=== PATIENT | male | born 1940 | race Caucasian/White ===

== ENCOUNTER → 2019-06-27 09:19 | Outpatient (CLI) | payer MEDICARE, OTHER, SELFPAY ==
[2019-06-27 12:14] LABS: Absolute Lymphocyte Count 0.86 X10^3/uL (0.83-4.51); Absolute Neutrophil Count 1.9 X10^3/uL (2.0-7.7); Basophil# 0.03 X10^3/uL; Basophil% 0.9 % (0-1); Eosinophil# 0.09 X10^3/uL; Eosinophils% 2.8 % (0-5); Lymphocyte # 0.86 X10^3/ul (4.0); Lymphocyte % 26.8 % (19-41); Mean Corp Hgb Conc 34.1 g/dL (32-36); Mean Corpuscular Hgb 32.5 pg (27.0-32.0); Mean Corpuscular Volume 95.4 fL (80-94); Mean Platelet Vol. 8.8 fl (6.2-12.0); Monocyte# 0.36 X10^3/uL; Monocyte% 11.2 % (0-10); NRBC Flagged by Analyzer 0 % (0-5); Neutrophil # 1.86 X10^3/uL (2.7-7.7); Platelet Count 199 K/mm3 (150-450); RBC Distribution Width CV 12.6 % (11.6-14.6); RBC Distribution Width SD 44.5 fl (35.1-43.9); Red Blood Count 4.61 M/mm3 (4.6-6.2); White Blood Count 3.2 K/mm3 (4.4-11.0)
[2019-06-27 12:24] LABS: ALB/GLOB Ratio 1.2 RATIO (0.9-2.4); AST(SGOT) 19 U/L (15-37); Alanine Aminotransfer ALT/SGPT 29 U/L (16-61); Albumin, Serum 3.7 g/dL (3.2-5.0); Alkaline Phosphatase 43 U/L (45-117); Anion Gap 3 (5-15); BUN 20 mg/dL (7-18); BUN/Creat Ratio 23.5 RATIO (10-20); Calcium,Total 8.3 mg/dL (8.5-10.1); Chloride 106 mmol/L (98-107); Creatinine, Serum 0.85 mg/dL (0.70-1.30); EST Glomerular Filtration Rate 93 mL/min (>60); Est Glom Filt Rate - Afr Amer 112 mL/min (>60); Globulin 3.2 g/dL (2.2-4.2); Glucose 89 mg/dL (74-106); PSA,Total- Diagnostic < 0.01 ng/mL (0.0-4.0); Potassium 3.8 mmol/L (3.5-5.1); Protein, Total 6.9 g/dL (6.4-8.2); Sodium Level 139 mmol/L (136-145); T4 Free Direct 0.87 ng/dL (0.76-1.46); Thyroid Stim Hormone (TSH) 2.24 uIU/mL (0.358-3.74)
== END ==
PROVIDERS: Family Provider Family Medicine; PCP Family Medicine; Referring Provider Family Medicine; Visit Provider Family Medicine
DX: E78.5 Hyperlipidemia, unspecified (principal); C61 Malignant neoplasm of prostate; I10 Essential (primary) hypertension
CPT/HCPCS: 36415; 80053; 84153; 84439; 84443; 85025

== ENCOUNTER 2019-07-22 09:22 | Day surgery (SDC) | payer MEDICARE, OTHER, SELFPAY ==
[2019-07-08 11:07] VITALS: BMI 23.1
--- NOTE | 2019-07-08 12:52 | HP_ITS ---
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 Is patient in pain?: No Allergies No Known Allergies Allergy (Verified 07/08/19 11:08) Medications chondroitin sulfate A sodium 400 mg capsule 400 mg PO BID 07/08/19 [History] glucosamine HCl 750 mg tablet 750 mg PO BID 07/08/19 [History] glucosamine SBs-saa-kgllsgkctkb 500 mg-300 mg-400 mg tablet 1 tab PO BID tab 07/08/19 [History] pyridoxine (vitamin B6) 100 mg tablet 100 mg PO DAILY 07/08/19 [History Confirmed 07/08/19] turmeric root extract 500 mg capsule 500 mg PO BID 07/08/19 [History Confirmed 07/08/19] vitamin R40-bbxzw acid 2.5 mg-0.8 mg oral sublingual tablet tab PO 07/08/19 [History] PFSH Medical History Hyperlipidemia (Acute) History of trigger finger (Acute) Hx of malignant neoplasm of prostate (Acute) Blood in stool (Acute) Hypertension (Chronic) Gout (Acute) Arthritis (Acute) Surgical History Hx of colonoscopy (Acute) History of bunionectomy of left great toe (Acute) Hx of melanoma excision (Acute) Hx of prostatectomy (Acute) Hx of simple renal cyst (Acute) Family History Mother CVA (cerebral vascular accident) Dementia Father COPD (chronic obstructive pulmonary disease) HPI HPI HPI: MAGDA BARRAZA, is a 78 M who presents to the office today for HPI HPI Surgical H&P: Yes HPI: MAGDA BARRAZA, is a 78 M who presents to the office today for Rectal bleeding. The patient reports he has been having bright red blood per rectum. He reports that he is not having any abdominal pain. He says his last colonoscopy was 8 years ago and was normal. He has no family history of colon cancer. He is not on any blood thinners. ROS General General: No weight change or fatigue Musc Musculoskeletal: Yes arthritis and gout Cardio Cardiovascular: Yes high blood pressure; no murmur, pacemaker, heart disease, atrial fibrillation, heart attack, heart stent, palpitations, shortness of breat with exertion or chest pain Psych Psychiatric: No depression or anxiety Resp Respiratory: No shortness of breath, No sleep apnea, No cough, No COPD, No asthma, No emphysema, No wheezing Gastro Gastrointestinal: No abdominal pain, No nausea or vomiting, No diarrhea, No constipation, Yes blood in stool, No acid reflux, No hemorrhoids, No ulcers, No gallbladder problem, No black,tarry stools Sampson Hematologic: No blood thinners Exam Const General: cooperative Orientation: alert, oriented x3 Resp Effort & Inspection: normal respiratory effort Auscultation: clear to auscultation bilaterally Cardio Rate: regular rate Rhythm: regular rhythm Heart Sounds: no murmurs GI Inspection: non-distended Palpation: soft, nontender Assessment & Plan Problems 1. Blood in stool K92.1 Plan Patient is having bright red blood in his stool. He is not having any abdominal pain. His last colonoscopy was 8 years ago and was normal. I recommend colonoscopy to check for sources of bleeding. I explained endoscopy in detail to the patient. I explained the risks including but not limited to stroke or heart attack with anesthesia, perforation of the GI tract, bleeding, infection. I explained that any of these could necessitate further emergency surgery. The patient understands and all questions were answered sufficiently. The patient wishes to proceed with procedure. Mikey Griffin MD Pager: [facility] [address] [place] [address], [address] [place] [address] Office: Orders Orders: Colonoscopy Today K62.5 Coding Level of Care Code Off vis,new,level 3 Diagnoses Blood in stool K92.1 07/08/19 1252 <Electronically signed by Mikey benson MD> Date _ Mikey Griffin MD I have re-examined the patient. There are no clinical changes since date of exam.
[2019-07-22] VITALS (7 sets, daily range): BP systolic 80–147; BP diastolic 57–95; PULSE 61–68; RESP 16; TEMP 16.1–36.9; O2SAT 95–99; BMI 23.5
[2019-07-22] MEDS: Lactated Ringers 1,000 ML 100 ML IV (09:57)
--- NOTE | 2019-07-22 10:53 | OP.COLON_ITS ---
Patient Name: Redd Astudillo Procedure Date: 07/22/2019 10:23 AM Date of : 1940 Age: 78 Procedure: Colonoscopy Indications: Rectal bleeding Providers: Mikey Griffin MD Referring MD: Chepe Olson Medicines: Monitored Anesthesia Care Patient Profile: This is a 78 year old male. Refer to note in patient chart for documentation of history and physical. Last Colonoscopy: several years ago. Complications: No immediate complications. Procedure: Pre-Anesthesia Assessment: - Prior to the procedure, a History and Physical was performed, and patient medications and allergies were reviewed. The patient's tolerance of previous anesthesia was also reviewed. The risks and benefits of the procedure and the sedation options and risks were discussed with the patient. All questions were answered, and informed consent was obtained. Prior Anticoagulants: The patient has taken no previous anticoagulant or antiplatelet agents. After reviewing the risks and benefits, the patient was deemed in satisfactory condition to undergo the procedure. After I obtained informed consent, the scope was passed under direct vision. Throughout the procedure, the patient's blood pressure, pulse, and oxygen saturations were monitored continuously. The colonoscope was introduced through the anus and advanced to the cecum, identified by appendiceal orifice and ileocecal valve. The colonoscopy was performed without difficulty. The patient tolerated the procedure well. The quality of the bowel preparation was good. Scope In: 10:34:31 AM Scope Withdrawal Time 0 hours 6 minutes 4 seconds Scope Out: 10:48:01 AM Total Procedure Duration Time 0 hours 13 minutes 30 seconds Findings: The entire examined colon appeared normal on direct and retroflexion views. Impression: - The entire examined colon is normal on direct and retroflexion views. - No specimens collected. Recommendation: - Discharge patient to home. - Resume previous diet. - Continue present medications. - Repeat colonoscopy is not recommended due to current age (66 years or older) for screening purposes. Procedure Code(s): --- Professional --- 88414, Colonoscopy, flexible; diagnostic, including collection of specimen(s) by brushing or washing, when performed (separate procedure) Diagnosis Code(s): --- Professional --- K62.5, Hemorrhage of anus and rectum CPT copyright 2017 [employer]. All rights reserved. The codes documented in this report are preliminary and upon political aide review may be revised to meet current compliance requirements. Mikey Griffin MD 07/22/2019 10:52:10 AM This report has been signed electronically. Number of Addenda: 0 Note Initiated On: 07/22/2019 10:23 AM
--- NOTE | 2019-07-22 10:53 | OP.CCLET_ITS ---
07/22/2019 Chepe Olson Re : Colonoscopy procedure for Redd Astudillo Dear [place] This procedure was performed on Monday, July 22, 2019. My impressions and recommendations are as follows: Impressions : - The entire examined colon is normal on direct and retroflexion views. - No specimens collected. Recommendations : - Discharge patient to home. - Resume previous diet. - Continue present medications. - Repeat colonoscopy is not recommended due to current age (66 years or older) for screening purposes. My findings are described in the full procedure note, which is enclosed. If I can be of further assistance, please feel free to contact me at Doctor phone number(s): , Work: . Sincerely, Mikey Griffin MD 07/22/2019 10:52:10 AM This report has been signed electronically.
== END 2019-07-22 11:36 | disposition home or self-care (01) ==
LOC: EN 09:23 → AC 09:28
PROVIDERS: Family Provider Family Medicine; PCP Family Medicine; Referring Provider Family Medicine; Visit Provider Surgery
PROC: 0DJD8ZZ Inspection of Lower Intestinal Tract, Via Natural or Artificial Opening Endoscopic (ICD-10-PCS; CPT 45378; principal; 2019-07-22 10:45)
DX: K62.5 Hemorrhage of anus and rectum (principal); I10 Essential (primary) hypertension; E78.5 Hyperlipidemia, unspecified; Z87.891 Personal history of nicotine dependence
CPT/HCPCS: G0121; J7120

== ENCOUNTER 2020-02-21 10:03 | Emergency (ER) | payer MEDICARE, OTHER, SELFPAY ==
[2019-07-22 09:51] VITALS: BMI 23.5
[2020-02-21 10:04] VITALS: BP 182/93; PULSE 67; RESP 20; TEMP 36.2; O2SAT 97; BMI 23.6
--- NOTE | 2020-02-21 10:13 | RAD_ITS ---
STUDY: X-RAY CHEST REASON FOR EXAM: Male, 79 years old. NEAR SYNCOPE AND DIZZINESS JUST PRIOR TO ARRIVAL TECHNIQUE: Single AP portable view of the chest. COMPARISON: None. FINDINGS: EKG electrodes are seen. Hyperinflation. There is no demonstrated pleural abnormality. There is borderline cardiomegaly. Normal mediastinum and maribell. There is prominence of the pulmonary hilar arteries without peripheral pulmonary vascular congestion, suggesting pulmonary hypertension. There is atherosclerotic tortuosity of the aortic arch and descending thoracic aorta. There are diffuse degenerative changes of the visualized thoracic spine. There is degenerative osteoarthritis of the bilateral shoulders. There is no demonstrated abnormality of the visualized soft tissue structures of the upper abdomen. RAD/Chest 1 View (Portable) IMPRESSION: Hyperinflation. Electronically Signed: Peter Carrasquillo, at 10:53 EDT , Service support ,
--- NOTE | 2020-02-21 10:13 | EKG12_ITS ---
Test Reason : NEAR SYNCOPE Blood Pressure : / mmHG Vent. Rate : 062 BPM Atrial Rate : 062 BPM P-R Int : 194 ms QRS Dur : 098 ms QT Int : 420 ms P-R-T Axes : -14 009 046 degrees QTc Int : 426 ms Normal sinus rhythm Nonspecific ST abnormality Abnormal ECG Confirmed by MARY OSBORN ([id number]), associate entertainment editor KANWAL WARE ([id number]) on 02/23/2020 9:02:55 AM Referred By: CORI Confirmed By:MARY OSBORN
[2020-02-21 10:18] VITALS: O2SAT 97
--- NOTE | 2020-02-21 10:20 | ED.VIS.GEN ---
History of Present Illness Chief Complaint: Dizziness Informant: Patient, Family Narrative: Patient is a 79-year-old male with a past medical history of hypertension who presents to the ED for a near syncopal episode. He states that he was out in the yard talking to other people. He started to feel lightheaded like he could pass out. He ended up blowing himself to the ground. He did have a awake overnight monitor that was placed on him which showed a blood pressure of 167/110. His heart rate was in the 60s. Satting 94% at that time. He states that the whole episode lasted maybe 5 minutes. He denies ever having this happen before in the past. During the episode he denies any chest pain, shortness of breath or heart palpitations. He states he is not almost back at baseline now. Denies any headache or vision changes. No neck pain or stiffness. Denies any recent illness including any nausea/vomiting or diarrhea. Denies any urinary symptoms. No cough, cold, congestion. No abdominal pain. He has a distant smoking history. No history of heart attacks, strokes or DVT/PE. No swelling or leg pain in his legs. Past Medical History - Allergies and Home Meds Allergies/Adverse Reactions: Allergies No Known Allergies Allergy (Verified 02/21/20 10:16) Primary Care Physician: Chepe Olson MD [Primary Care Provider] - As soon as possible Prior records reviewed: Yes Past Medical History: - - Hypertension Smoking Status: Former smoker Review of Systems All systems negative except as indicated General: Denies: Chills, Fever, Sweats Eyes: Denies: Visual changes - bilaterally, Diplopia ENT: Denies: Rhinorrhea, Sore throat Cardiovascular: Denies: Chest pain, Palpitations Respiratory: Denies: Dyspnea, Cough, Dyspnea on exertion Gastrointestinal: Denies: Abdominal pain, Nausea, Vomiting, Diarrhea, Melena, Hematochezia Genitourinary: Denies: Dysuria, Hematuria, Frequency Musculoskeletal: Denies: Back pain, Extremity Pain Skin: Denies: Rash, Wounds Neurological: Reports: - - Lightheadedness. Denies: Headache, Weakness, Numbness Physical Exam Vital Signs/Narrative: Vital Signs Temp Pulse Resp BP Pulse Ox 02/21/20 10:18 97 02/21/20 10:04 97.1 F L 67 20 H 182/93 H 97 Inital Vital Signs reviewed: Yes General: Well nourished, Well developed, No Acute Distress Head: Normocephalic, Atraumatic Eyes: Perrl, EOMI ENT: Moist mucous membranes, No rhinorrhea Neck: Supple, Nontender Cardiovascular: Regular rate, Regular rhythm, No murmurs, - - 2+ radial pulse bilateral Respiratory: No distress, CTA bilaterally, Chest nontender Abdomen: Soft, Nontender, Nondistended, Normal bowel sounds Back: Nontender, Normal Inspection Extremities: Nontender, No edema. Negative for: Calf Tenderness Skin: Normal color, No rash Neurological: Alert, Oriented x3, Cranial nerves II-XII grossly intact, Normal Strength, Normal Sensation Psychological: Normal affect, Normal Mood Diagnostic/Tx/Re-eval - EKG Initial EKG Interpretation: - - Rate of 62 bpm and normal sinus rhythm. Normal intervals. Normal axis. No ST elevations or depressions appreciated. No T wave abnormalities. - Medical Decision Making Patient presents to the ED for near syncopal episode. The symptoms lasted for approximately 5 minutes. He feels much better at this time. Upon arrival he is mildly hypertensive otherwise normal vital signs. Has no complaints at this time. Basic lab work, EKG and chest x-ray being obtained along with orthostatic vital signs. Patient's lab work did not reveal any significant acute abnormality. Initial troponin within normal limits. Has been stable throughout ED stay without any repeat symptoms. I offered hospitalization I do not have a reason for patient's near syncopal episode. He is requesting outpatient work-up for this. I did contact his PCP and updated them on patient's symptoms and findings. They are going to see him in the office. Patient is to call to schedule this appointment. I feel patient would benefit from ultrasound/stress test. I did discuss strict return precautions for which to return to the ED including any repeat symptoms, chest pain, shortness of breath or heart palpitations. He understands and is agreeable this plan. Will discharge home in stable condition. ED Disposition - Plan for ED Patient: Disposition: Home or Assisted Living Diagnosis: Near syncope Instructions: ED Fainting Uncertain Cause Referrals: Chepe Olson MD [Primary Care Provider] - As soon as possible
[2020-02-21 10:31] LABS: Absolute Lymphocyte Count 1.04 X10^3/uL (0.83-4.51); Basophil# 0.03 X10^3/uL; Basophil% 0.9 % (0-1); Eosinophil# 0.07 X10^3/uL; Hematocrit 43.9 % (40-54); Hemoglobin 15.2 g/dL (13.0-16.5); Lymphocyte # 1.04 X10^3/ul (4.0); Mean Corp Hgb Conc 34.6 g/dL (32-36); Mean Corpuscular Volume 95.4 fL (80-94); Mean Platelet Vol. 8.2 fl (6.2-12.0); Monocyte# 0.36 X10^3/uL; Monocyte% 10.4 % (0-10); NRBC Flagged by Analyzer 0 % (0-5); Neutrophil # 1.96 X10^3/uL (2.7-7.7); Neutrophil % 56.4 % (47-70); Platelet Count 195 K/mm3 (150-450); RBC Distribution Width CV 12.4 % (11.6-14.6); RBC Distribution Width SD 43.8 fl (35.1-43.9); White Blood Count 3.5 K/mm3 (4.4-11.0)
[2020-02-21 11:02] LABS: Anion Gap 4 (5-15); BUN 15 mg/dL (7-18); BUN/Creat Ratio 16.2 RATIO (10-20); Calcium,Total 8.8 mg/dL (8.5-10.1); Chloride 103 mmol/L (98-107); Creatinine, Serum 0.93 mg/dL (0.70-1.30); EST Glomerular Filtration Rate 83 mL/min (>60); Est Glom Filt Rate - Afr Amer 101 mL/min (>60); Estimated Creatinine Clearance 62.31 ml/min; Glucose 101 mg/dL (74-106); Magnesium 2.5 mg/dL (1.6-2.6); Potassium 3.8 mmol/L (3.5-5.1); Sodium Level 137 mmol/L (136-145)
[2020-02-21 11:06] VITALS: BP 141/104; BP 142/84; BP 151/97; PULSE 59; PULSE 62; PULSE 63
== END 2020-02-21 11:47 | disposition home or self-care (01) ==
PROVIDERS: Emergency Provider Emergency Medicine; PCP Family Medicine
DX: R55 Syncope and collapse (principal); Z87.891 Personal history of nicotine dependence; I10 Essential (primary) hypertension; Z79.899 Other long term (current) drug therapy
CPT/HCPCS: 71045; 80048; 83735; 84484; 85025; 93005; 99284; A4216

== ENCOUNTER → 2020-03-20 11:16 | Outpatient (CLI) | payer MEDICARE, OTHER, SELFPAY ==
[2020-02-21 10:04] VITALS: BMI 23.6
--- NOTE | 2020-03-20 11:19 | RAD_ITS ---
HISTORY: low back pain, hx of prostate ca COMPARISON: None FINDINGS: # of images incl. paperwork: 5 XR Spine Lumbar Min 4 Views: Lumbar vertebral bodies are normal in height. Lumbar disc spaces are well maintained. No acute lumbar spine fracture or subluxation. Dextroscoliosis within the lumbar spine. Levoscoliosis at the level thoracolumbar junction. Multilevel degenerative disc disease with loss of disc height, endplate sclerosis, and calcification of disc spaces. Bone mineral density in the pelvis may be diminished. RAD/L/S Spine Min 4 Views IMPRESSION: No acute lumbar spine fracture or subluxation. at 0423 Reported and signed by: Jake Ricks MD Electronically Signed: Jake Ricks MD at 4:22 EDT Tel , Service support ,
== END ==
PROVIDERS: PCP Family Medicine; Referring Provider Family Medicine; Visit Provider Family Medicine
DX: M54.5 Low back pain (principal)
CPT/HCPCS: 72110

== ENCOUNTER → 2020-07-31 10:29 | Outpatient (CLI) | payer MEDICARE, OTHER, SELFPAY ==
[2020-07-31 12:21] LABS: Absolute Neutrophil Count 2.3 X10^3/uL (2.0-7.7); Basophil# 0.03 X10^3/uL; Basophil% 0.8 % (0-1); Eosinophil# 0.07 X10^3/uL; Eosinophils% 1.9 % (0-5); Hematocrit 43.5 % (40-54); Lymphocyte % 24.7 % (19-41); Mean Corp Hgb Conc 34.5 g/dL (32-36); Mean Corpuscular Hgb 32.3 pg (27.0-32.0); Mean Corpuscular Volume 93.5 fL (80-94); Mean Platelet Vol. 8.7 fl (6.2-12.0); Monocyte% 8.2 % (0-10); NRBC Flagged by Analyzer 0 % (0-5); Neutrophil # 2.33 X10^3/uL (2.7-7.7); Neutrophil % 64.1 % (47-70); Platelet Count 202 K/mm3 (150-450); RBC Distribution Width CV 12.2 % (11.6-14.6); RBC Distribution Width SD 42.3 fl (35.1-43.9); Red Blood Count 4.65 M/mm3 (4.6-6.2); White Blood Count 3.6 K/mm3 (4.4-11.0)
[2020-07-31 12:44] LABS: ALB/GLOB Ratio 1.2 RATIO (0.9-2.4); AST(SGOT) 15 U/L (15-37); Alanine Aminotransfer ALT/SGPT 25 U/L (16-61); Albumin, Serum 3.9 g/dL (3.2-5.0); Alkaline Phosphatase 50 U/L (45-117); Anion Gap 7 (5-15); BUN 13 mg/dL (7-18); BUN/Creat Ratio 14.3 RATIO (10-20); Chloride 104 mmol/L (98-107); Cholesterol 193 mg/dL (200); Creatinine, Serum 0.91 mg/dL (0.70-1.30); EST Glomerular Filtration Rate 85 mL/min (>60); Est Glom Filt Rate - Afr Amer 103 mL/min (>60); Globulin 3.2 g/dL (2.2-4.2); Glucose 86 mg/dL (74-106); High Density Lipoprotein 77 mg/dL; PSA,Total- Diagnostic < 0.01 ng/mL (0.0-4.0); Potassium 4.2 mmol/L (3.5-5.1); Protein, Total 7.1 g/dL (6.4-8.2); Sodium Level 138 mmol/L (136-145); Triglycerides 49 mg/dL; Very Low Density Lipoprotein 10 mg/dL (5-40)
== END ==
PROVIDERS: PCP Family Medicine; Visit Provider Family Medicine
DX: I10 Essential (primary) hypertension (principal); E78.5 Hyperlipidemia, unspecified; Z85.46 Personal history of malignant neoplasm of prostate
CPT/HCPCS: 36415; 80053; 80061; 84153; 85025

== ENCOUNTER → 2022-01-13 | Outpatient (CLI) | payer MEDICARE, OTHER, SELFPAY ==
--- NOTE | 2022-01-13 08:30 | CDU_ITS ---
Reason For Study: Vertigo Rt. Velocities/BP Lt. Velocities/BP Prox CCA 106/16 cm/sec. Prox CCA 103/23 cm/sec. Mid CCA 63/9 cm/sec. Mid CCA 79/23 cm/sec. Dist CCA 78/11 cm/sec. Dist CCA 62/17 cm/sec. Prox ICA 53/16 cm/sec. Prox ICA 46/14 cm/sec. Mid ICA 54/19 cm/sec. Mid ICA 69/22 cm/sec. Dist ICA 90/26 cm/sec. Dist ICA 88/32 cm/sec. Rt. ICA/CCA = 1.4. Lt. ICA/CCA = 1.1. Prox ECA 68/7 cm/sec. Prox ECA 71/14 cm/sec. Rt. Vert. 58/14 cm/sec. Lt. Vert. 53/20 cm/sec. Right Extracranial There is intimal thickening but no significant atherosclerotic plaque noted in the right common carotid artery. There is intimal thickening but no significant atherosclerotic plaque noted in the right internal carotid artery. There is intimal thickening but no significant atherosclerotic plaque noted in the right external carotid artery. Antegrade flow is noted in the right vertebral artery. Left Extracranial There is heterogeneous, irregular atherosclerotic plaque noted in the left common carotid artery. There is intimal thickening but no significant atherosclerotic plaque noted in the left internal carotid artery. There is no significant atherosclerotic plaque noted in the left external carotid artery. Antegrade flow is noted in the left vertebral artery. Procedure Carotid Duplex [id number]. This is a Carotid Duplex examination using B-mode, color flow and specral Doppler. Exam performed in department. VL/Carotid Duplex Ultrasound Interpretation Summary Mild (<50%) stenosis right extracranial internal carotid. Mild (<50%) stenosis left extracranial internal carotid. Patent and antegrade vertebrals bilaterally. Ordering Physician: Chepe Olson Referring Physician: Chepe Olson Performed By: Nicolasa Wilson, AYDEE, RVT
== END | disposition home or self-care (01) ==
LOC: CVS 08:29
PROVIDERS: PCP Family Medicine; Referring Provider Family Medicine; Visit Provider Family Medicine
DX: I65.23 Occlusion and stenosis of bilateral carotid arteries (principal)
CPT/HCPCS: 93880

== ENCOUNTER → 2022-02-26 | Outpatient (CLI) | payer MEDICARE, OTHER, SELFPAY ==
--- NOTE | 2022-02-26 13:15 | RAD_ITS ---
STUDY: X-RAY - THORACIC SPINE REASON FOR EXAM: Male, 81 years old. PAIN TECHNIQUE: 3 view(s) of the thoracic spine were obtained. COMPARISON: None. FINDINGS: Normal kyphosis of the thoracic spine. Mild dextroscoliosis of the lower thoracic spine. There is multilevel endplate spondylosis of the thoracic vertebrae. There is multilevel disc space narrowing of the thoracic spine. The soft tissue structures are unremarkable. RAD/Thoracic Spine 3 Views IMPRESSION: Mild dextroscoliosis with degenerative disc disease. Electronically Signed: Reese Lindsey MD at 14:20 EDT ,
== END | disposition home or self-care (01) ==
PROVIDERS: PCP Family Medicine; Referring Provider Nurse Practitioner Family; Visit Provider Nurse Practitioner Family
DX: M54.6 Pain in thoracic spine (principal)
CPT/HCPCS: 72072

== ENCOUNTER 2022-03-08 13:57 | Emergency (ER) | payer MEDICARE, OTHER, SELFPAY ==
[2022-03-08 13:58] VITALS: BP 153/101; PULSE 79; RESP 16; TEMP 36.8; O2SAT 98; BMI 22.1
--- NOTE | 2022-03-08 14:11 | EKG12_ITS ---
Test Reason : SOB Blood Pressure : / mmHG Vent. Rate : 079 BPM Atrial Rate : 079 BPM P-R Int : 172 ms QRS Dur : 084 ms QT Int : 380 ms P-R-T Axes : 060 -16 037 degrees QTc Int : 435 ms Normal sinus rhythm Nonspecific ST and T wave abnormality Abnormal ECG Confirmed by ANA BLAKELY, FRANCOIS ([id number]), editor publications LIBRADO LAI ([id number]) on 03/10/2022 11:15:07 AM Referred By: JARRED Confirmed By:FRANCOIS PEREZ MD
--- NOTE | 2022-03-08 14:12 | RAD_ITS ---
HISTORY: SOB. TECHNIQUE: XR Chest 1 View. COMPARISON: 02/21/2020. FINDINGS: CARDIOMEDIASTINAL BORDERS: Cardiac silhouette within normal limits in size. Mediastinal contour unremarkable with calcification of the aorta. LUNGS: Hyperinflation suggesting COPD. Chronic mild left basilar scarring. PLEURA: No pleural effusion or pneumothorax seen. OSSEOUS STRUCTURES: Degenerative change with scoliosis. RAD/Chest 1 View (Portable) IMPRESSION: No acute cardiopulmonary process identified. Electronically Signed: Maude Cuevas MD at 14:22 EDT ,
[2022-03-08 14:39] LABS: Absolute Lymphocyte Count 0.64 X10^3/uL (0.83-4.51); Absolute Neutrophil Count 3.7 X10^3/uL (2.0-7.7); Basophil# 0.01 X10^3/uL; Basophil% 0.2 % (0-1); Hematocrit 40.5 % (40-54); Hemoglobin 14.2 g/dL (13.0-16.5); Lymphocyte # 0.64 X10^3/ul (0.83-4.51); Lymphocyte % 12.9 % (19-41); Mean Corp Hgb Conc 35.1 g/dL (32-36); Mean Corpuscular Hgb 33.2 pg (27.0-32.0); Mean Corpuscular Volume 94.6 fL (80-94); Mean Platelet Vol. 8.3 fl (6.2-12.0); Monocyte# 0.59 X10^3/uL; Monocyte% 11.8 % (0-10); NRBC Flagged by Analyzer 0 % (0-5); Neutrophil # 3.73 X10^3/uL (2.7-7.7); Neutrophil % 74.9 % (47-70); Platelet Count 146 K/mm3 (150-450); RBC Distribution Width CV 12.8 % (11.6-14.6); RBC Distribution Width SD 44.2 fl (35.1-43.9); Red Blood Count 4.28 M/mm3 (4.6-6.2)
[2022-03-08 14:57] LABS: Anion Gap 6 (5-15); BUN 14 mg/dL (7-18); BUN/Creat Ratio 16.5 RATIO (10-20); Calcium,Total 9.4 mg/dL (8.5-10.1); Chloride 103 mmol/L (98-107); Creatinine, Serum 0.85 mg/dL (0.70-1.30); EST Glomerular Filtration Rate 92 mL/min (>60); Est Glom Filt Rate - Afr Amer 111 mL/min (>60); Estimated Creatinine Clearance 63.82 ml/min; Glucose 139 mg/dL (74-106); Potassium 3.5 mmol/L (3.5-5.1); Sodium Level 136 mmol/L (136-145)
[2022-03-08 15:52] VITALS: BP 153/101; PULSE 79; RESP 16; TEMP 36.8; O2SAT 98
[2022-03-08 15:57] VITALS: RESP 16; O2SAT 98
--- NOTE | 2022-03-08 15:57 | ED.VIS.DYS ---
HPI History of Present Illness Chief Complaint: Shortness of Breath Informant: patient Narrative Narrative: COVID infection diagnosed at home today. Symptomatic 2 days sore throat with occasional wheezing. No tobacco history. No history of asthma or COPD. COVID vaccinated with booster. Return from a cruise. No history of COVID infections in the past. Pulse ox 93% at home. History of hypertension on medications. Prior similar symptoms: No PFSH PFSH Medical History Arthritis Blood in stool Gout History of trigger finger Hx of malignant neoplasm of prostate Hyperlipidemia Hypertension Home Medications chondroitin sulfate A sodium 400 mg capsule 400 mg PO BID 07/08/19 [History Last Taken Unknown] glucosamine HCl 750 mg tablet 750 mg PO BID 07/08/19 [History Last Taken Unknown] pyridoxine (vitamin B6) 100 mg tablet 100 mg PO DAILY 07/08/19 [History Last Taken Unknown] turmeric root extract 500 mg capsule 500 mg PO BID 07/08/19 [History Last Taken Unknown] vitamin U07-ettvv acid 2.5 mg-0.8 mg oral sublingual tablet 1 tab PO DAILY 07/08/19 [History Last Taken Unknown] amlodipine 2.5 mg tablet 2.5 mg PO DAILY 07/18/19 [History Last Taken 07/22/19] nirmatrelvir 300 mg (150 mg x2)-ritonavir 100 mg tablet,dose pack(EUA) (Paxlovid) See Rx Instructions PO .COMPLEX #30 tabs 03/08/22 [Rx Last Taken Unknown] Allergy/AdvReac Type Severity Reaction Status Date / Time No Known Allergies Allergy Verified 03/08/22 13:58 Family History Mother CVA (cerebral vascular accident) Dementia Father COPD (chronic obstructive pulmonary disease) Surgical History History of bunionectomy of left great toe Hx of colonoscopy Hx of melanoma excision Hx of prostatectomy Hx of simple renal cyst Social History Smoking Status: Former smoker quit date: 07/07/69 second hand exposure: No alcohol intake: current alcohol intake frequency: 0-2 drinks per day Alcohol type: wine substance use type: does not use caffeine: Yes what type of physical activity do you participate in: walking and aerobics frequency: 3-4 times per week ROS ROS ED Constitutional Constitutional ED: Denies chills, fever(s) or sweats Eyes Eyes: Denies change in vision ENT ENT ED: Reports sore throat; Denies dysphagia Cardiovascular Cardiovascular: Denies chest pain, leg edema, palpitations or racing heartbeat Respiratory/Chest Respiratory/Chest: Reports dyspnea; Denies cough or dyspnea on exertion Gastrointestinal Gastrointestinal: Denies abdominal pain, diarrhea, nausea or vomiting Genitourinary Genitourinary ED: Denies dysuria, hematuria or urinary frequency Musculoskeletal Musculoskeletal: Denies back pain, extremity pain or neck pain Integumentary Denies rash or wounds Neurologic Neurologic: Denies headache(s), paresthesias or weakness EXAM Physical Exam Const Vital Signs: 03/08/22 13:58 03/08/22 15:52 03/08/22 15:57 Temperature 98.2 F 98.2 F Temperature Source Temporal Temporal Pulse Rate 79 79 Respiratory Rate 16 16 Respiratory Effort Respiratory Depth Respiratory Pattern Blood Pressure 153/101 H 153/101 H Blood Pressure Mean 118 118 Pulse Ox 98 98 Oxygen Delivery Method Room Air Room Air Room Air Oxygen Flow Rate (L/min) 98 03/08/22 15:57 03/08/22 16:18 03/08/22 16:19 Temperature Temperature Source Pulse Rate Respiratory Rate 16 18 Respiratory Effort Normal Respiratory Depth Normal Respiratory Pattern Normal Blood Pressure Blood Pressure Mean Pulse Ox 98 Oxygen Delivery Method Room Air Room Air Oxygen Flow Rate (L/min) Positive well nourished and well developed General Appearance ED: well developed and NAD HEENT Reports moist mucous membranes normocephalic and atraumatic Eyes PERRL, EOMs intact bilaterally and conjunctivae normal General Eye ED: Yes normal appearance of both eyes Neck no lymphadenopathy and supple General: Negative for tenderness Chest Wall Chest: Negative for tenderness Resp normal respiratory effort and normal air movement Effort and Inspection: symmetric chest movement; Negative for respiratory distress Cardio regular rate, regular rhythm and no murmurs Peripheral Pulses: pulses 2+ throughout GI normal to inspection, nondistended, normoactive bowel sounds and non-tender Palpation: Negative for guarding or rebound tenderness present Back/Spine no CVA tenderness and no thoracic nor lumbar tenderness Extremity normal to inspection General Extremety ED: Negative for edema or tenderness General Extremity: Negative for edema Neuro oriented x3 and no sensory deficits noted Sensorium / Orientation: awake and alert Skin no rashes or lesions noted and no wounds MDM MDM MDM Narrative Medical decision making narrative: Patient coinfection at home day 2. History of hypertension. EKG sinus rhythm chest x-ray 1 view reviewed myself read by radiology shows no acute process. Basic labs were normal. He is day 2 of symptoms within the window for treatment. Discussed options he would like treatment. Paxlovid with meds to bed written. He has a pulse oximeter at home. Return precautions. All questions were answered. Lab Data Attestation: I reviewed the patient's lab results. Labs: Laboratory Results - last 24 hr 03/08/22 03/08/22 14:30 14:30 WBC 5.0 RBC 4.28 L Hgb 14.2 Hct 40.5 MCV 94.6 H MCH 33.2 H MCHC 35.1 RDW Std Deviation 44.2 H RDW Coeff of Danilo 12.8 Plt Count 146 L MPV 8.3 Immature Gran % (Auto) 0.200 Neut % (Auto) 74.9 H Lymph % (Auto) 12.9 L Whiteside % (Auto) 11.8 H Eos % (Auto) 0.0 Baso % (Auto) 0.2 Absolute Neuts (auto) 3.7 Absolute Lymphs (auto) 0.64 L Nucleated RBC % 0 Sodium 136 Potassium 3.5 Chloride 103 Carbon Dioxide 27.0 Anion Gap 6 BUN 14 Creatinine 0.85 Estim Creat Clear Calc 63.82 Est GFR (MDRD) Af Amer 111 Est GFR (MDRD) Non-Af 92 BUN/Creatinine Ratio 16.5 Glucose 139 H Calcium 9.4 Radiography Diagnostic Testing: Clinical Impression(s) from Imaging Studies Chest X-Ray 03/08/22 14:12 IMPRESSION: No acute cardiopulmonary process identified. Electronically Signed: Maude Cuevas MD at 14:22 EDT , EKG Initial EKG: Attestation: I personally reviewed and interpreted this EKG as follows: Comments: Sinus rate of 79, no ST or T wave changes. Discharge Plan Triage Chief Complaint: Shortness of Breath ED Provider: Ha Farr Dx/Rx/DC Orders Clinical Impression: COVID-19 virus infection, Sore throat, Wheezing Instructions: Coronavirus Disease 2019 (COVID-19): Caring for Yourself or Others Prescriptions: New Paxlovid (EUA) 300 mg (150 mg x 2)-100 mg tablets,dose pack See Rx Instructions .ROUTE .COMPLEX Qty: 30 0RF Rx Instructions: take TWO 150 mg tablets of nirmatrelvir with ONE 100 mg tablet of ritonavir twice daily for 5 days No Action turmeric root extract 500 mg capsule 500 mg PO BID vitamin [id number] acid 2.5 mg-0.8 mg oral sublingual tablet 2.5-0.8 mg tablet, sublingual 1 tab PO DAILY pyridoxine (vitamin B6) 100 mg tablet 100 mg PO DAILY glucosamine HCl 750 mg tablet 750 mg tablet 750 mg PO BID Rx Instructions: administer with meals chondroitin sulfate A sodium 400 mg capsule 400 mg capsule 400 mg PO BID amlodipine 2.5 MG tablet 2.5 mg PO DAILY Primary Care Provider: Chepe Olson Referrals: Chepe Olson MD [Primary Care Provider] - 1 Week Activity Restrictions/Additional Instructions: Take medication as prescribed. Monitor symptoms and pulse oximeter. Return if pulse ox below 88 with worsening dyspnea. Disposition Disposition: Home, Self Care Discharge Date/Time: 03/08/22 16:23
[2022-03-08 16:18] VITALS: RESP 18
[2022-03-08 16:19] VITALS: O2SAT 99
== END 2022-03-08 16:23 | disposition home or self-care (01) ==
PROVIDERS: Emergency Provider Emergency Medicine; PCP Family Medicine; Visit Provider Emergency Medicine
DX: U07.1 COVID-19 (principal); E78.5 Hyperlipidemia, unspecified; I10 Essential (primary) hypertension; R06.2 Wheezing; M19.90 Unspecified osteoarthritis, unspecified site; Z87.891 Personal history of nicotine dependence; Z79.899 Other long term (current) drug therapy
CPT/HCPCS: 71045; 80048; 85025; 93005; 94760; 99283; A4216

== ENCOUNTER → 2022-05-26 | Outpatient (CLI) | payer MEDICARE, OTHER, SELFPAY ==
[2022-05-26 15:27] LABS: PSA,Total- Diagnostic < 0.01 ng/mL (0.0-4.0)
== END | disposition home or self-care (01) ==
LOC: LAB 14:02
PROVIDERS: PCP Family Medicine; Referring Provider Registered Nurse; Visit Provider Registered Nurse
DX: C61 Malignant neoplasm of prostate (principal)
CPT/HCPCS: 36415; 84153

== ENCOUNTER → 2022-07-16 | Outpatient (CLI) | payer MEDICARE, OTHER, SELFPAY ==
--- NOTE | 2022-07-16 14:53 | CT_ITS ---
EXAM: CT ABDOMEN AND PELVIS WITH INTRAVENOUS CONTRAST CLINICAL INDICATION: HYDRONEPHROSIS? POSSIBLY FOUND ON MRI OF BACK TECHNIQUE: Helically acquired images were obtained of the abdomen and pelvis with intravenous contrast. This CT exam was performed using one or more of the following dose reduction techniques: automated exposure control, adjustment of the mA and/or kV according to patient size, and/or use of iterative reconstruction technique. This report was created using [employer] report generation technology. CONTRAST: IV 100mL Isovue-300 COMPARISON: None. FINDINGS: LOWER THORAX: Unremarkable. Lung bases are clear. No cardiomegaly. No significant pericardial effusion. ABDOMEN: LIVER: There is a simple cyst in the inferior right lobe of the liver. GALLBLADDER AND BILE DUCTS: Unremarkable. No calcified gallstones. No gallbladder distention or wall edema. No intra- or extrahepatic biliary ductal dilation. PANCREAS: Unremarkable. No focal cystic or solid mass. SPLEEN: Unremarkable. Normal size without focal cystic or solid mass. ADRENALS: Unremarkable. No nodules. KIDNEYS AND URETERS: Delayed images show normal tracer contrast from both kidneys. There are bilateral peripelvic cysts in the kidneys. No hydronephrosis. STOMACH AND BOWEL: Unremarkable. No stomach or bowel distention. No focal inflammatory change. PELVIS: APPENDIX: No evidence of acute appendicitis. BLADDER: Unremarkable. REPRODUCTIVE: Unremarkable as visualized. No mass. ABDOMEN and PELVIS: INTRAPERITONEAL SPACE: Unremarkable. No ascites or other fluid collection. No free air. BONES/JOINTS: Unremarkable. No suspicious lytic or blastic abnormality. SOFT TISSUES: Unremarkable. No discrete abdominal or pelvic wall hernia. VASCULATURE: Unremarkable. Abdominal aorta is non-dilated. LYMPH NODES: Unremarkable. No enlarged lymph nodes. CT/Abdomen/Pelvis W IV Cont ONLY IMPRESSION: Peripelvic cysts in the kidneys. There is no hydronephrosis. There are no acute abnormalities. Electronically Signed: Crispin Cuevas MD at 18:18 EST ,
[2022-07-16 15:20] LABS: CREATININE FINGERSTICK < 0.9 mg/dL (0.70-1.30); EGFR FINGERSTICK > 60.0000 mL/min (>60)
== END | disposition home or self-care (01) ==
LOC: CT 14:52
PROVIDERS: PCP Family Medicine; Referring Provider Urology; Visit Provider Urology
DX: N28.1 Cyst of kidney, acquired (principal)
CPT/HCPCS: 74177; Q9967

== ENCOUNTER → 2022-10-20 | Outpatient (CLI) | payer MEDICARE, OTHER, SELFPAY ==
[2022-10-20 12:09] LABS: Absolute Lymphocyte Count 0.77 X10^3/uL (0.83-4.51); Absolute Neutrophil Count 2.1 X10^3/uL (2.0-7.7); Basophil# 0.02 X10^3/uL; Basophil% 0.6 % (0-1); Eosinophil# 0.07 X10^3/uL; Eosinophils% 2.1 % (0-5); Hematocrit 42.8 % (40-54); Hemoglobin 14.5 g/dL (13.0-16.5); Lymphocyte # 0.77 X10^3/ul (0.83-4.51); Lymphocyte % 23.5 % (19-41); Mean Corp Hgb Conc 33.9 g/dL (32-36); Mean Corpuscular Hgb 32.3 pg (27.0-32.0); Mean Corpuscular Volume 95.3 fL (80-94); Mean Platelet Vol. 8.6 fl (6.2-12.0); Monocyte% 9.1 % (0-10); NRBC Flagged by Analyzer 0 % (0-5); Neutrophil # 2.11 X10^3/uL (2.7-7.7); Neutrophil % 64.4 % (47-70); Platelet Count 216 K/mm3 (150-450); RBC Distribution Width CV 12.6 % (11.6-14.6); RBC Distribution Width SD 44.6 fl (35.1-43.9); Red Blood Count 4.49 M/mm3 (4.6-6.2); White Blood Count 3.3 K/mm3 (4.4-11.0)
[2022-10-20 12:41] LABS: ALB/GLOB Ratio 1.2 RATIO (0.9-2.4); AST(SGOT) 17 U/L (15-37); Alanine Aminotransfer ALT/SGPT 23 U/L (16-61); Albumin, Serum 3.9 g/dL (3.2-5.0); Alkaline Phosphatase 56 U/L (45-117); Anion Gap 2 (5-15); BUN 18 mg/dL (7-18); BUN/Creat Ratio 21.8 RATIO (10-20); Calcium,Total 9.2 mg/dL (8.5-10.1); Chloride 107 mmol/L (98-107); Cholesterol 194 mg/dL (200); Creatinine, Serum 0.82 mg/dL (0.70-1.30); EST Glomerular Filtration Rate 95 mL/min (>60); Est Glom Filt Rate - Afr Amer 115 mL/min (>60); Globulin 3.2 g/dL (2.2-4.2); Glucose 90 mg/dL (74-106); High Density Lipoprotein 79 mg/dL; PSA,Total - Annual Screen < 0.01 ng/mL (0.00-4.00); Potassium 3.9 mmol/L (3.5-5.1); Protein, Total 7.1 g/dL (6.4-8.2); Sodium Level 137 mmol/L (136-145); Triglycerides 59 mg/dL; Very Low Density Lipoprotein 12 mg/dL (5-40)
== END | disposition home or self-care (01) ==
LOC: BFHLAB 09:07
PROVIDERS: PCP Nurse Practitioner Family; Referring Provider Nurse Practitioner Family; Visit Provider Nurse Practitioner Family
DX: Z00.00 Encounter for general adult medical examination without abnormal findings (principal); E78.5 Hyperlipidemia, unspecified; I10 Essential (primary) hypertension; Z85.46 Personal history of malignant neoplasm of prostate; Z12.5 Encounter for screening for malignant neoplasm of prostate
CPT/HCPCS: 36415; 80053; 80061; 84153; 85025; G0103

== ENCOUNTER → 2023-01-05 | Outpatient (CLI) | payer MEDICARE, OTHER, SELFPAY ==
[2023-01-05 18:07] LABS: Absolute Lymphocyte Count 0.93 X10^3/uL (0.83-4.51); Absolute Neutrophil Count 2.5 X10^3/uL (2.0-7.7); Basophil# 0.02 X10^3/uL; Basophil% 0.5 % (0-1); Eosinophil# 0.06 X10^3/uL; Eosinophils% 1.6 % (0-5); Hematocrit 38.5 % (40-54); Hemoglobin 13.4 g/dL (13.0-16.5); Lymphocyte # 0.93 X10^3/ul (0.83-4.51); Lymphocyte % 24.2 % (19-41); Mean Corp Hgb Conc 34.8 g/dL (32-36); Mean Corpuscular Hgb 33.2 pg (27.0-32.0); Mean Corpuscular Volume 95.3 fL (80-94); Monocyte# 0.36 X10^3/uL; Monocyte% 9.4 % (0-10); NRBC Flagged by Analyzer 0 % (0-5); Neutrophil # 2.46 X10^3/uL (2.7-7.7); Platelet Count 190 K/mm3 (150-450); RBC Distribution Width CV 12.8 % (11.6-14.6); RBC Distribution Width SD 44.9 fl (35.1-43.9); Red Blood Count 4.04 M/mm3 (4.6-6.2); White Blood Count 3.8 K/mm3 (4.4-11.0)
[2023-01-05 18:26] LABS: Vitamin B12 1593 pg/mL (211-911); Vitamin D,25 Hydroxy 59.9 ng/mL
[2023-01-05 18:35] LABS: ALB/GLOB Ratio 1.2 RATIO (0.9-2.4); AST(SGOT) 13 U/L (15-37); Alanine Aminotransfer ALT/SGPT 21 U/L (16-61); Albumin, Serum 3.6 g/dL (3.2-5.0); Alkaline Phosphatase 56 U/L (45-117); Anion Gap 4 (5-15); BUN 23 mg/dL (7-18); BUN/Creat Ratio 25.7 RATIO (10-20); Calcium,Total 9.1 mg/dL (8.5-10.1); Chloride 107 mmol/L (98-107); EST Glomerular Filtration Rate 86 mL/min (>60); Est Glom Filt Rate - Afr Amer 105 mL/min (>60); Ferritin 121 ng/mL (26-388); Globulin 3.1 g/dL (2.2-4.2); Glucose 97 mg/dL (74-106); Iron 85 ug/dL (65-175); Potassium 4.1 mmol/L (3.5-5.1); Protein, Total 6.7 g/dL (6.4-8.2); Sodium Level 137 mmol/L (136-145); Thyroid Stim Hormone (TSH) 2.08 uIU/mL (0.358-3.74)
== END | disposition home or self-care (01) ==
PROVIDERS: PCP Nurse Practitioner Family; Referring Provider Nurse Practitioner Family; Visit Provider Nurse Practitioner Family
DX: R53.83 Other fatigue (principal); D64.9 Anemia, unspecified; E55.9 Vitamin D deficiency, unspecified
CPT/HCPCS: 36415; 80053; 82306; 82607; 82728; 83540; 84443; 85025

== ENCOUNTER → 2023-01-09 | Outpatient (CLI) | payer MEDICARE, OTHER, SELFPAY ==
--- NOTE | 2023-01-09 14:38 | MRI_ITS ---
EXAM: MR HEAD WITHOUT AND WITH INTRAVENOUS CONTRAST CLINICAL INDICATION: Left hand tremor. Shuffling gait. TECHNIQUE: Multiplanar and multisequence MR images of the brain were obtained without and with intravenous contrast. CONTRAST: 13 mL of IV Clariscan. COMPARISON: No relevant prior studies available. FINDINGS: BRAIN AND EXTRA-AXIAL SPACES: Right anterior periventricular white matter T2 FLAIR hyperintensity foci extending to the right frontal operculum is chronic white matter ischemic changes. No mass effects and no midline shift. Following IV contrast administration, there are no abnormally enhancing lesions intra-axially and extra-axially. No intra- or extra-axial hemorrhage. Posterior fossa structures are unremarkable. No hydrocephalus. No diffusion restriction to suspect acute or subacute ischemic infarct. Normal ventricles and cisterns. SELLA: Unremarkable. Normal sella turcica, pituitary gland, infundibular stalk, optic chiasm and hypothalamus. AUDITORY SYSTEM: Unremarkable. The internal auditory canals are patent. BONES/JOINTS: Unremarkable. No discrete lytic or blastic abnormalities. SINUSES: Mucosal thickening with retention cyst in the small floor of the small left sphenoid sinus. Normal remaining paranasal sinuses. MASTOID AIR CELLS: Unremarkable as visualized. Clear. ORBITS: Unremarkable as visualized. Both globes, extraocular muscles, optic nerves and retrobulbar fat appear unremarkable. VASCULATURE: Unremarkable as visualized. Normal flow voids in the major intracranial circulation. MRI/Brain W/WO Contrast IMPRESSION: 1. No MRI evidence of acute or subacute ischemic infarct, intracranial mass or acute intracranial abnormality. 2. No abnormal enhancing lesions intra-axially and extra-axially. 3. Right anterior periventricular white matter chronic white matter ischemic change. 4. Mild mucosal thickening with small retention cyst in the floor the left sphenoid sinus. Electronically Signed: Oziel Duarte MD at 14:58 EDT ,
== END | disposition home or self-care (01) ==
LOC: MRI 14:36
PROVIDERS: PCP Nurse Practitioner Family; Referring Provider Nurse Practitioner Family; Visit Provider Nurse Practitioner Family
DX: G25.0 Essential tremor (principal); R26.89 Other abnormalities of gait and mobility; R41.842 Visuospatial deficit
CPT/HCPCS: 70553; A9575

== ENCOUNTER 2023-11-30 09:00 | Outpatient (RCR) | payer MEDICARE, OTHER, SELFPAY ==
--- NOTE | 2023-09-28 10:48 | HP.PTREVAL ---
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 Please see the progress note below for an update on the physical therapy plan of care! Subjective Subjective: Pt feels the same and that he struggles with his balance. He fell in class the other day. He has had positional vertigo and Dr Obregon has corrected it. Now he gets dizzy rolling to his R side and he avoids rolling to the R side. Objective Objective/Function: R Hallpike negative for nystagmus but increase dizziness that lasted 20 seconds. Treated with R Eply and had dizziness when sitting up from Eply Repeated R Hallpike and had no room spinning dizziness Worked with the pt on changing direction fast and he would get his feet tangled and slower to react to being off balance and slower reaction to changing directionh Plan Plan Plan: Work on changing direction and picking up his feet, work on balance when looking up or changing head position quickly 2X/ week for 6 weeks for postural exercises, gait training with head turns, stepping over objects, curb steps, dual tasking, sit to stand mechanics with HEP Balance/Gait/Functional tests Balance/Special Test Scores Functional Gait Assessment Score: 22 % Disability: 26.6700 Lower Extremity Functional Score: 43 Goals Goals Goal 1:: I HEP Goal Time Frame: 4-6 Weeks Goal 2:: Be able to step over objects without hesitancy or LOB Goal Time Frame: 4-6 Weeks Goal Progress: Progressing Goal 3:: Be able to go up and down a curb step without LOB or hesitancy Goal Time Frame: 4-6 Weeks Goal Progress: Progressing Goal 4:: Be able to demonstrate good posture on command with gait and standing posture Goal Time Frame: 4-6 Weeks Goal Progress: Goal Met Anticipated Interventions Anticipated Interventions Patient/Client Instruction: Educate patient on: Condition and Plan of Care For the Purpose of:: To improve nutrient delivery to tissue, To improve muscle performance and motor function, To improve ability to perform ADL's, To increase tolerance to activity/condition/position, To improve performance and independence with ADL's, To decrease level of supervision to perform tasks, To improve ability of physical actions for home/community/work/leisure, To improve gait and locomotor functions, To improve endurance, To improve balance and To improve safety with gait Therapeutic Exercise to Include: Strength training, Endurance training, Balance training, Coordination, Body mechanics, Postural training, Flexibilty training, Gait and locomotor training, Neuromotor development, Passive ROM, Active ROM and Dynamic Lumbar Stabilization For the Purpose of:: To decrease pain, To increase ROM, To improve nutrient delivery to tissue, To improve muscle performance and motor function, To improve ability to perform ADL's, To increase tolerance to activity/condition/position, To improve performance and independence with ADL's, To decrease level of supervision to perform tasks, To improve ability of physical actions for home/community/work/leisure, To improve gait and locomotor functions, To improve health of tissue, To decrease soft tissue restriction, To increase flexibility/ROM, To improve endurance, To improve balance and To improve safety with gait Functional Training to Include: Gait training For the Purpose of:: To improve gait and locomotor functions and To improve safety with gait Re-Evaluation Ending Re-evaluation ending: Please do not hesitate to contact me at [phone] by phone or if you have questions or concerns regarding this new plan of care! Sincerely, Gretchen Russo, MPT
--- NOTE | 2023-11-02 15:17 | HP.SP.EVAL ---
Visit History Visit Info Date of Eval: 10/28/23 Visit: 1 Insurance Date Limit: 06/28/24 [employer] Supervisor: JACQUES History Attending Doctor: ARMAND Referring Doctor: ARMAND Reason for Referral: [facility]. RX HERE Previous speech therapy: No Other Relevant Medical History/Diagnoses/Surgery: Prostate Cancer Medications related to this diagnosis: Carbo-levodopa, amoiphin Smoking Status: Former smoker Diagnosis Diagnosis: Parkinson, voice disorder, Mild recall deficits. Pain Is pain an issue with your current prescribed condition?: No Personal Preferred language: Slovak Patient Allergies Allergies Allergies: Allergies No Known Allergies Allergy (Verified 03/08/22 13:58) Subjective Oral Motor Subjective Patient Reports: Drooling Comments Comments: Patient states he notices that he drools sometimes. He stated he did when he was at the store and sometimes drools at home. CLQT CLQT CLQT Administered: Yes CLQT: Cognitive Linguistic Quick Test (CLQT) is a criterion - referenced assessment designed for adults between the ages of 18 and 89 with known or suspected neurological dysfuntions. The CLQT is to assess strength and weaknesses in five cognitive domains. Severity ratings are within normal limits, mild, moderate, severe deficits. The subtests are as follows: Date: 10/28/23 Attention Attention: WNL Memory Memory: WNL Executive Functions Executive Functions: WNL Language Language: WNL Visuospatial Skills Visuospatial Skills: WNL Composite Severity Rating Composite Severity Rating: WNL Clock Drawing Severity Rating Clock Drawing Severity Rating: WNL CLQT Comments Comments: -: Redd had WNL skills on testing. He reported memory deficits in functional daily living. Recently he paid a tax bill for over 7,000 and had no recall of paying the bill. He checked his bank account and found it was taken out. He was able to look to who it was to then problem solved that he paid the taxes. Objective Voice Date of Diagnosis Previous Speech Therapy (If yes, describe): No Medications Familiar with on/off effect: Yes Implantation Deep brain implantation (If yes, answer next question): No Objective data Objective Data: Objective data: Sound pressure level (SPL acoustic correlation of vocal loudness) was measured with a sound level meter at a distance of 40 cm from the patient's mouth. Average conversational loudness is 70-80 dB and sustained phonation duration is 15 to 20 seconds for a typical adult. Sustained Phonation Intensity (dB SPL): 64 Sustained Phonatin duration (seconds): 18 Vocal Intensity at Conversational Level (dB SPL): 59 Reference: Neuro-QoL instrument Radiation Oncology Patient Plan Plan Plan: A vocal intensity based intervention approach applying LSVT principles to improve speech intelligibility will be used. Given the progressive nature of primary diagnosis, It is not anticipated for a full return to pre-morbid level of functioning, though will expect to achieve gains in speech intelligibility as well as maintain current level of functioning. To achieve this, the patient will require continued skilled speech-language intervention not only through the current intervention cycle but will likely benefit from repeated intervention cycles to maintain communication efficiency. Recommendations Treatment Warranted: Yes Treatment Warranted: Voice Progress Prognosis: Good Frequency Frequency: 1x/Week Duration: 6 Months Patient/Family Goal Patient/Family Goal: Getting rid of the raspy voice. Goals that are Established Determination:: Goals will be added/modified as deemed necessary and appropriate. Therapy will be discontinued when results of re-evaluation indicate therapy is no longer needed or lack of progress has been documented. Goal #1-5 Goal #1: Redd will independently recall and use memory strategies for daily living tasks on 4/5 trials. Goal #2: Patient will increase vocal loudness to reach a target sound pressure level of 75 dB ABRASIVE SAWYER with 1 cue during sustained phonation, which will help increase vocal respiratory support for functional communication. Goal #3: Patient will increase vocal loudness to reach a target sound pressure level of 65 dB ABRASIVE SAWYER with 1 cue during reading at the word and sentence level, which will help increase vocal respiratory support for functional communication. Goal #4: Patient will increase vocal loudness to reach a target sound pressure level of 65 dB ABRASIVE SAWYER with 1 cue during conversation for functional communication. Education Patient has Indicated that the Following Identified Educational Needs: None The Patient has indicated that they have no educational or learning abilities that may effect their care.: Yes Patient Instruction Patient Education: Diagnosis, Treatment Plan and Goals Person Taught: Patient Teaching Method: Discussion and Demonstration Response to teaching: Return demonstration and Verbalize understanding
--- NOTE | 2023-11-24 11:48 | HP.PTDCSUM ---
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 Discharge Date: 11/24/23 Please see the following information for a summary of their discharge status. Subjective Subjective: Pt still feels unstable when he drinks his wine and then just the faster movements. He has found a non alcoholic beer and will start drinking that. He will look into his med and see if there is a side effect. Pain R LB and buttock: Pain Intensity (Out of 10): 3 Overall Improvement % Improvement: 30 Objective Objective/Function: Pt goes up and down the steps recip with 2 hand rails Pt is able to step up and over a curb step (6 inch) Pt is able to step over a 6 inch block with no hesitation multiple times Goals Goal 1:: I HEP Goal Progress: Goal Met Goal 2:: Be able to step over objects without hesitancy or LOB Goal Progress: Goal Met Goal 3:: Be able to go up and down a curb step without LOB or hesitancy Goal Progress: Goal Met Goal 4:: Be able to demonstrate good posture on command with gait and standing posture Goal Progress: Goal Met Plan Plan: DC PT to Indep workout and PD classes D/C Information Discharge Comments: DC PT d/c sentence: If there are questions or concerns regarding this patient's physical therapy, please feel free to call me at [phone]. Thank you for the referral of this patient. Sincerely, Gretchen Russo, MPT Balance/Gait/Functional tests Balance/Special Test Scores Functional Gait Assessment Score: 22 % Disability: 26.6700 Lower Extremity Functional Score: 56 Improvement % Improvement: 30
--- NOTE | 2023-11-30 10:28 | HP.SP.DC ---
ST Discharge Summary Discharged: Discharge: Redd Astudlilo is discharged from [facility] speech therapy as of November 30, 2023 as services are no longer warranted. His goals targeted increased volume for functional communication as well as use of recall strategies. He is independently able to use at least 2-3 recall strategies. His volume in conversation ranges from 59dB to 63dB ( goal was 65dB).He stated that this is his normal volume as he is a quiet person. Recently he was with family and no one asked him to repeat anything. Patient is discharged as he and therapist decided that he is able to independently monitor his volume and that currently he is functional with his volume. Please see daily notes and reports for further information. Thank you for allowing me to participate in the care of this patient.
== END 2023-11-30 13:52 | disposition home or self-care (01) ==
LOC: SP 09:00
PROVIDERS: PCP Nurse Practitioner Family; Referring Provider Nurse Practitioner Family; Visit Provider Nurse Practitioner Family
DX: G20.A1 Parkinson's disease without dyskinesia, without mention of fluctuations (principal); R49.0 Dysphonia
CPT/HCPCS: 92507; 92523; 97110; 97112; 97161; 97530

== ENCOUNTER → 2023-12-02 | Outpatient (CLI) | payer MEDICARE, OTHER, SELFPAY ==
[2023-12-02 12:46] LABS: Absolute Lymphocyte Count 0.81 X10^3/uL (0.83-4.51); Absolute Neutrophil Count 2.4 X10^3/uL (2.0-7.7); Basophil# 0.03 X10^3/uL; Basophil% 0.8 % (0-1); Eosinophils% 2.7 % (0-5); Hematocrit 41.2 % (40-54); Hemoglobin 13.9 g/dL (13.0-16.5); Lymphocyte # 0.81 X10^3/ul (0.83-4.51); Lymphocyte % 21.5 % (19-41); Mean Corp Hgb Conc 33.7 g/dL (32-36); Mean Corpuscular Hgb 32.6 pg (27.0-32.0); Mean Corpuscular Volume 96.5 fL (80-94); Mean Platelet Vol. 8.6 fl (6.2-12.0); Monocyte# 0.38 X10^3/uL; Monocyte% 10.1 % (0-10); NRBC Flagged by Analyzer 0 % (0-5); Neutrophil # 2.44 X10^3/uL (2.7-7.7); Neutrophil % 64.6 % (47-70); Platelet Count 182 K/mm3 (150-450); RBC Distribution Width CV 12.5 % (11.6-14.6); RBC Distribution Width SD 44.1 fl (35.1-43.9); Red Blood Count 4.27 M/mm3 (4.6-6.2); White Blood Count 3.8 K/mm3 (4.4-11.0)
[2023-12-02 12:52] LABS: ALB/GLOB Ratio 1.1 RATIO (0.9-2.4); AST(SGOT) 16 U/L (15-37); Alanine Aminotransfer ALT/SGPT 11 U/L (16-61); Albumin, Serum 3.7 g/dL (3.2-5.0); Alkaline Phosphatase 47 U/L (45-117); Anion Gap 5 (5-15); BUN 19 mg/dL (7-18); BUN/Creat Ratio 21.8 RATIO (10-20); Calcium,Total 9.1 mg/dL (8.5-10.1); Chloride 108 mmol/L (98-107); Cholesterol 192 mg/dL (200); Creatinine, Serum 0.87 mg/dL (0.70-1.30); EST Glomerular Filtration Rate 89 mL/min (>60); Est Glom Filt Rate - Afr Amer 107 mL/min (>60); Globulin 3.3 g/dL (2.2-4.2); Glucose 90 mg/dL (74-106); High Density Lipoprotein 71 mg/dL; Iron 85 ug/dL (65-175); PSA,Total - Annual Screen < 0.01 ng/mL (0.00-4.00); Potassium 3.7 mmol/L (3.5-5.1); Sodium Level 138 mmol/L (136-145); Triglycerides 77 mg/dL; Very Low Density Lipoprotein 15 mg/dL (5-40)
== END | disposition home or self-care (01) ==
LOC: BFHLAB 08:55
PROVIDERS: PCP Nurse Practitioner Family; Referring Provider Nurse Practitioner Family; Visit Provider Nurse Practitioner Family
DX: I10 Essential (primary) hypertension (principal); E78.5 Hyperlipidemia, unspecified; D64.9 Anemia, unspecified; Z12.5 Encounter for screening for malignant neoplasm of prostate
CPT/HCPCS: 36415; 80053; 80061; 83540; 84153; 85025; G0103

== ENCOUNTER 2024-06-09 09:00 | Outpatient (RCR) | payer MEDICARE, OTHER, SELFPAY ==
--- NOTE | 2024-05-18 12:46 | HP.OTEVAL ---
Patient's Visit Information Visit Information Visit Information: MAGDA BARRAZA is a 83 year old M, referred to Occupational Therapy by VERO Felder, with a diagnosis of left trigger thumb. Date of Evaluation: 05/18/24 Occupational Therapist: Ivonne Marti, DOMINGUEZ/Huyen, CHT Subjective Subjective: This 83 year old male was seen for OT eval with dx of left trigger thumb. Pt states he has had triggering in left thumb for about 6 months or longer. Pt states he is using a soft thumb splint at [facility] but he can still notice it triggers. pt is right handed pt has dx of PD and works with the [employer] the [employer]. pt states he also does a balancing workout with is . pt active and feels the trigger thumb is limiting him with daily. tasks. Pain left thumb: Current Pain Intensity: 2 Pain Intensity Range: 4 ROM ROM Comments: pt demo with a positive trigger thumb- left ( nodule at left thumb A1 donovan- tender with palpation. noted significate CMC OA deformities Sensation Sensation Comments: denies Quick DASH-Disab of Arm,Shoulder& Hand Quick DASH Score: 34.0900 Goals Goal:: pt will report no pain greater than 1/10 with use of left hand for ADLs and IADLs by d.c Goal:: Pt will demo understanding of joint protection and ergonomics when performing BADLs and IADLs by d/c Pt will demo understanding of adaptive Equipment use to decrease stress on joints to allow pt to perform BADSL and IADLS at LILIBETH level. Goal:: pt will report a 75 % reduction in left trigger thumb when using hand for daily tasks by d/c Goal:: Pt will demo understanding of using supportive bracing 80% of workday/ADLS to decrease stress on tendon origin to allow healing and decrease pain by end of 2nd session. Rehabilitation General Assessment: pt demo with a positive left thumb trigger finger limiting pts IND with daily tasks. pt would benefit from skilled OT services 1-2x week for 3-4 weeks for pt to return to using left hand with ADLS and IADLs without triggering. Today therapist ed, pt on use of oval 8 splint to limit IP flexion- therapist michael, custom night splint for left thumb to allow for tendon to rest and heal- pt ed. in use pt demo understanding and agree to POC. Rehabilitation Potential: Good Anticipated Interventions Anticipated Interventions: Triggerpoint Release, Modalities, Orthoses, Joint Protection/Energy Conservation, Ergonomic Education, Education re assistive Equipment, Education re Diagnosis and Home Program Visit Plan Frequency: 1-2x /Week Duration: 2-4 Weeks TEXT: Thank you for the opportunity to evaluate your patient. For Medicare and Medicare HMO plans, please review the plan of care and approve it. It will need to be FAXED BACK to us at [phone] for Medicare purposes. Please let me know if there are questions or concerns regarding this plan of care. Physician Signature: Date:
--- NOTE | 2024-06-09 09:33 | HP.OTDCSUM ---
Discharge Summary D/C Summary: It has been my pleasure to treat MAGDA BARRAZA under orders from FABIÁN FelderC, for the diagnosis of left trigger thumb for a total of 7 visit(s). Please see the following information for a summary of their discharge status. Overall Improvement % Improvement: 60 Objective Objective/Function: pt states only triggered 2 x since last here Goals Patient Goals: Decrease Pain, Use Hand/Wrist/Arm Normally Again and Resume Former Household Responsibilities (Cooking,Cleaning,Yard, etc.) Goal:: pt will report no pain greater than 1/10 with use of left hand for ADLs and IADLs by d.c Goal:: Pt will demo understanding of joint protection and ergonomics when performing BADLs and IADLs by d/c Pt will demo understanding of adaptive Equipment use to decrease stress on joints to allow pt to perform BADSL and IADLS at LILIBETH level. Goal:: pt will report a 75 % reduction in left trigger thumb when using hand for daily tasks by d/c Goal:: Pt will demo understanding of using supportive bracing 80% of workday/ADLS to decrease stress on tendon origin to allow healing and decrease pain by end of 2nd session. Plan Plan: pt to wean out of braces next 2-3 weeks - if triggering increases pt to return to for cortisone shot- pt demo understanding and agree to POC D/C Information Discharge Comments: pt has managed to decrease is left thumb triggering to min. amounts- pt will initiate weaning out of his orthosis in next 2-3 weeks- if triggering increases pt will return to for cortisone shot. pt agrees with D/C d/c sentence: If there are questions or concerns regarding this patient's occupational therapy, please fell free to call me at [phone]. Thank you for the referral of this patient. Sincerely, Ivonne Marti, OTR/L, CHT
== END 2024-06-09 19:00 | disposition home or self-care (01) ==
LOC: OT 09:00
PROVIDERS: PCP Nurse Practitioner Family; Referring Provider Nurse Practitioner Family; Visit Provider Nurse Practitioner Family
DX: M65.30 Trigger finger, unspecified finger (principal)
CPT/HCPCS: 97035; 97140; 97166; 97530

== ENCOUNTER → 2024-12-23 | Outpatient (CLI) | payer MEDICARE, OTHER, SELFPAY ==
[2024-12-23 12:44] LABS: Absolute Lymphocyte Count 0.97 X10^3/uL (0.83-4.51); Absolute Neutrophil Count 1.7 X10^3/uL (2.0-7.7); Basophil# 0.03 X10^3/uL; Eosinophil# 0.07 X10^3/uL; Eosinophils% 2.3 % (0-5); Hematocrit 41.7 % (40-54); Hemoglobin 14.4 g/dL (13.0-16.5); Lymphocyte # 0.97 X10^3/ul (0.83-4.51); Lymphocyte % 31.4 % (19-41); Mean Corp Hgb Conc 34.5 g/dL (32-36); Mean Corpuscular Hgb 33.2 pg (27.0-32.0); Mean Corpuscular Volume 96.1 fL (80-94); Mean Platelet Vol. 8.8 fl (6.2-12.0); Monocyte# 0.27 X10^3/uL; Monocyte% 8.7 % (0-10); NRBC Flagged by Analyzer 0 % (0-5); Neutrophil # 1.74 X10^3/uL (2.7-7.7); Neutrophil % 56.3 % (47-70); Platelet Count 225 K/mm3 (150-450); RBC Distribution Width CV 12.2 % (11.6-14.6); RBC Distribution Width SD 43.2 fl (35.1-43.9); Red Blood Count 4.34 M/mm3 (4.6-6.2); White Blood Count 3.1 K/mm3 (4.4-11.0)
[2024-12-23 13:25] LABS: Cholesterol 173 mg/dL (<=200); High Density Lipoprotein 67 mg/dL; Low Density Lipoprotein Calc. 95 mg/dL; Triglycerides 57 mg/dL; Very Low Density Lipoprotein 11 mg/dL (5-40); cholesterol:hdl ratio screen 2.58
[2024-12-23 13:41] LABS: ALB/GLOB Ratio 1.6 RATIO (0.9-2.4); AST(SGOT) 17 U/L (<=37); Alanine Aminotransfer ALT/SGPT < 5 U/L (<=46); Albumin, Serum 4.2 g/dL (3.4-4.8); Alkaline Phosphatase 53 U/L (40-129); Anion Gap 11 (5-15); BUN 18 mg/dL (4-19); BUN/Creat Ratio 19.7 RATIO (10-20); Calcium,Total 9.2 mg/dL (7.6-11.0); Carbon Dioxide 23.1 mmol/L (21.0-32.0); Chloride 105 mmol/L (98-108); Creatinine, Serum 0.92 mg/dL (0.70-1.20); EST Glomerular Filtration Rate 83 (>60); Globulin 2.5 g/dL (2.2-4.2); Glucose 90 mg/dL (70-99); PSA,Total- Diagnostic < 0.02 ng/mL (0.00-4.00); Potassium 4.1 mmol/L (3.3-5.1); Protein, Total 6.7 g/dL (5.9-8.4); Sodium Level 139 mmol/L (133-145); Total Bilirubin 0.69 mg/dL (0.00-1.30)
[2024-12-23 13:53] LABS: Iron 94 ug/dL (65-175)
== END | disposition home or self-care (01) ==
PROVIDERS: PCP Nurse Practitioner Family; Visit Provider Nurse Practitioner Family
DX: C61 Malignant neoplasm of prostate (principal); E78.5 Hyperlipidemia, unspecified; E61.1 Iron deficiency; I10 Essential (primary) hypertension
CPT/HCPCS: 36415; 80053; 80061; 83540; 84153; 85025